=== PATIENT | female | born 1990 | race American Indian/Alaskan Native ===

== ENCOUNTER 2017-10-31 08:18 | Outpatient (CLI) | payer MEDICAID ==
[2017-10-31] MEDS ORDERED: LACTATED RINGERS 500 ML IV ONE (10:10)
[2017-10-31 11:01] VITALS: BP 119/59
== END 2017-10-31 11:25 | disposition home or self-care (01) ==
LOC: TRG 08:18
PROVIDERS: ATTEND Obstetrics & Gynecology
DX: O47.03 False labor before 37 completed weeks of gestation, third trimester (principal); Z3A.28 28 weeks gestation of pregnancy
CPT/HCPCS: 59025

== ENCOUNTER 2017-12-06 02:21 | Emergency (ER) | payer MEDICAID ==
[2017-12-06] MEDS ORDERED: TYLENOL ONE (02:34)
[2017-12-06 02:47] VITALS: BP 117/60
[2017-12-06] MEDS ORDERED: TYLENOL PO ONE (02:47)
== END 2017-12-06 09:40 | disposition left against medical advice (07) ==
LOC: ED 02:21
DX: R51 Headache (principal); Z53.21 Procedure and treatment not carried out due to patient leaving prior to being seen by health care provider

== ENCOUNTER 2017-12-26 22:16 | Outpatient (CLI) | payer MEDICAID ==
[2017-12-26] MEDS ORDERED: LACTATED RINGERS 500 ML IV ONE (22:36)
[2017-12-26 22:49] VITALS: BP 111/56
[2017-12-26 23:29] LABS: Bacteria,Urine 1+ /HPF (Negative); Bilirubin,Urine NEG (Negative); Blood,Urine NEG (Negative); Color,Urine Yellow (Yellow); Mucus,Urine FEW /HPF; Protein,Urine <15 mg/dL mg/dL (Negative); Urobilinogen,Urine < 2.0 mg/dL (<2.0)
== END 2017-12-27 00:55 | disposition home or self-care (01) ==
LOC: TRG 22:16
PROVIDERS: ATTEND Obstetrics & Gynecology
DX: O47.03 False labor before 37 completed weeks of gestation, third trimester (principal); Z3A.36 36 weeks gestation of pregnancy
CPT/HCPCS: 81001

== ENCOUNTER 2017-12-28 05:19 | Inpatient (IN) | payer MEDICAID ==
[2017-12-28] MEDS ORDERED: LACTATED RINGERS 1,000 ML ONE (05:45)
[2017-12-28] MEDS ORDERED: PITOCin/NS 20 UNIT/1000ML DRIP 20,000 MILLIUNITS/1,000 ML BAG IV ONE (05:46)
[2017-12-28] MEDS ORDERED: STADOL ONE (05:59)
[2017-12-28] MEDS ORDERED: POLYCILLIN/NS 2 GM/100 ML 2 GM/100 ML BAG IV SCH (06:00)
[2017-12-28] MEDS ORDERED: LACTATED RINGERS 1,000 ML IV SCH (06:00)
[2017-12-28] MEDS ORDERED: METHERGINE IM ONE ×2 (06:25→06:34)
[2017-12-28 06:31] LABS: Hemoglobin 9.6 gm/dl (10.1-14.3); Mean Corpuscular HGB Conc 33 % (30-34); Mean Corpuscular Hemoglobin 31 pg (28-32); Mean Corpuscular Volume 93 fl (79-97); Platelet Count 338 K/mm3 (140-440); Red Blood Count 3.12 M/mm3 (3.65-5.03); Red Cell Distribution Width 16.2 % (13.2-15.2)
--- NOTE | 2017-12-28 06:32 | Procedure Note ---
OB Delivery Note - Delivery Date of Delivery: 12/28/17 (6-5oz male @ 0619) Surgeon: NAIN CAVAZOS Estimated blood loss: 300cc - Vaginal Delivery presentation: vertex Delivery position: OA Intrapartum events: none Delivery induction: none Delivery monitor: external FHT, external uterine Route of delivery: Delivery placenta: spontaneous Delivery cord: 3 umbilical vessels Episiotomy: none Delivery laceration: none Anesthesia: none - A at 1 minute: 8 at 5 minutes: 9 Gender: Female (SROM clear fluid unpon arrival. viable female. Spont. lusty cry. Patient declined skin to skin. Cord blood collected. Spont. placenta. heavy bleeding. Pitocin infusing. methergine given. No lacerations. Bleeding scant)
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
[2017-12-28] MEDS ORDERED: PITOCin/NS 20 UNIT/1000ML DRIP 20 UNITS/1,000 ML BAG IV SCH (07:00)
[2017-12-28] MEDS ORDERED: POLYCILLIN/NS 2 GM/100 ML 2 GM/100 ML BAG IV ONE (07:00)
[2017-12-28] MEDS ORDERED: BENADRYL PO PRN (08:30)
[2017-12-28] MEDS ORDERED: TYLENOL PO PRN (08:30)
[2017-12-28] MEDS ORDERED: PHENERGAN PR PRN (08:30)
[2017-12-28] MEDS ORDERED: ZOFRAN IV PRN (08:30)
[2017-12-28] MEDS ORDERED: PHENERGAN PO PRN (08:30)
[2017-12-28] MEDS ORDERED: LANSINOH TP PRN (08:30)
[2017-12-28] MEDS ORDERED: SODIUM CHLORIDE FLUSH SYRINGE 10 ML IV PRN (08:30)
[2017-12-28] MEDS ORDERED: TUCKS PAD TP PRN (08:30)
[2017-12-28] MEDS: MOTRIN PO SCH ×2 (09:35→18:37)
[2017-12-28] MEDS: FEOSOL PO SCH ×2 (09:35→21:58)
[2017-12-28] MEDS ORDERED: DULCOLAX PR PRN (10:00)
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
[2017-12-28 20:29] LABS: Hematocrit 27.5 % (30.3-42.9); Hemoglobin 9.1 gm/dl (10.1-14.3)
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
[2017-12-28] MEDS: NORCO 5/325 PO PRN (21:58)
[2017-12-28] MEDS ORDERED: MILK OF MAGNESIA PO PRN (22:00)
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
[2017-12-29] MEDS: MOTRIN PO SCH ×3 (01:24→18:23)
[2017-12-29] MEDS: NORCO 5/325 PO PRN (04:34)
[2017-12-29] MEDS ORDERED: BOOSTRIX IM ONE (06:24)
[2017-12-29 07:01] LABS: Alanine Aminotransferase 9 units/L (7-56); Albumin 2.5 g/dL (3.9-5); BUN/Creatinine Ratio 9; Blood Urea Nitrogen 6 mg/dL (7-17); Calcium 7.9 mg/dL (8.4-10.2); Hemolysis Index 4
[2017-12-29] MEDS: FEOSOL PO SCH (09:37)
--- NOTE | 2017-12-29 09:49 | XRay Report ---
AP AND LATERAL SOFT TISSUES OF THE NECK: History: Neck pain. The contour of the upper airway appears within normal limits. The epiglottis is not enlarged. No prevertebral soft tissue swelling is apparent. No mass density or foreign body is evident. IMPRESSION: Normal study.
[2017-12-29] MEDS ORDERED: Fluarix Quad 2017-2018(36 MOS+ IM ONE (12:00)
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
[2017-12-29 17:45] VITALS: BP 115/59
== END 2017-12-29 19:20 | disposition home or self-care (01) | DRG 774 ==
LOC: TRG 05:19 → LD 06:02 → OB 09:01
PROVIDERS: ADMIT Obstetrics & Gynecology; ATTEND Obstetrics & Gynecology
PROC: 10E0XZZ Delivery of Products of Conception, External Approach (ICD-10-PCS; principal; 2017-12-28)
PROC: 3E0234Z Introduction of Serum, Toxoid and Vaccine into Muscle, Percutaneous Approach (ICD-10-PCS; 2017-12-29)
DX: O60.14X0 Preterm labor third trimester with preterm delivery third trimester, not applicable or unspecified (principal); O98.32 Other infections with a predominantly sexual mode of transmission complicating childbirth; Z37.0 Single live birth; Z3A.36 36 weeks gestation of pregnancy; O99.334 Smoking (tobacco) complicating childbirth; F17.200 Nicotine dependence, unspecified, uncomplicated; O75.89 Other specified complications of labor and delivery; H53.8 Other visual disturbances; M54.2 Cervicalgia; M79.606 Pain in leg, unspecified; V89.2XXA Person injured in unspecified motor-vehicle accident, traffic, initial encounter; Y93.89 Activity, other specified; Y92.89 Other specified places as the place of occurrence of the external cause; Y99.8 Other external cause status; Z23 Encounter for immunization; A60.00 Herpesviral infection of urogenital system, unspecified
CPT/HCPCS: 36415; 70360; 70480; 80053; 85014; 85018; 85027; 86592; 86850; 86900; 86901; 88307; 90471; 90686; 90715; 99211; G0463; J0290; J0595; J2210; J2590; J7120

== ENCOUNTER 2018-11-01 03:13 | Outpatient (CLI) | payer MEDICAID ==
[2018-11-01] MEDS ORDERED: LACTATED RINGERS 1,000 ML IV ONE (03:52)
[2018-11-01 04:28] VITALS: BP 110/59
[2018-11-01 04:28] LABS: Bilirubin,Urine NEG (Negative); Blood,Urine NEG (Negative); Color,Urine Straw (Yellow); Mucus,Urine FEW /HPF; Protein,Urine <15 mg/dL mg/dL (Negative); Urobilinogen,Urine < 2.0 mg/dL (<2.0)
[2018-11-01 04:29] LABS: WBC,Urine < 1.0 /HPF (0.0-6.0)
[2018-11-01 04:32] LABS: Hematocrit 29.6 % (30.3-42.9); Hemoglobin 9.5 gm/dl (10.1-14.3); Mean Corpuscular HGB Conc 32 % (30-34); Mean Corpuscular Volume 94 fl (79-97); Platelet Count 313 K/mm3 (140-440); Red Blood Count 3.14 M/mm3 (3.65-5.03); Red Cell Distribution Width 16.8 % (13.2-15.2)
[2018-11-01 05:28] LABS: Alanine Aminotransferase 9 units/L (7-56)
[2018-11-01 06:00] LABS: Uric Acid 3.4 mg/dL (3.5-7.6)
== END 2018-11-01 05:57 | disposition home or self-care (01) ==
LOC: TRG 03:13
PROVIDERS: ATTEND Obstetrics & Gynecology
DX: O47.1 False labor at or after 37 completed weeks of gestation (principal); O99.333 Smoking (tobacco) complicating pregnancy, third trimester; F17.210 Nicotine dependence, cigarettes, uncomplicated; Z3A.39 39 weeks gestation of pregnancy
CPT/HCPCS: 36415; 59025; 81001; 82565; 83615; 84450; 84460; 84550; 85027; 96360; J7120

== ENCOUNTER 2018-11-08 15:07 | Inpatient (IN) | payer MEDICAID ==
[2018-11-08] MEDS ORDERED: BRETHINE SUB-Q PRN (20:50)
[2018-11-08] MEDS ORDERED: ZOFRAN IV PRN (20:50)
[2018-11-08] MEDS ORDERED: SUBLIMAZE IV PRN (20:50)
[2018-11-08] MEDS ORDERED: MINERAL OIL PO PRN (20:50)
[2018-11-08] MEDS ORDERED: BRETHINE IVP PRN (20:50)
[2018-11-08] MEDS ORDERED: PITOCin/NS 20 UNIT/1000ML DRIP 20 UNITS/1,000 ML BAG IV SCH (21:00)
[2018-11-08] MEDS ORDERED: LACTATED RINGERS 1,000 ML IV SCH (21:00)
[2018-11-09] MEDS ORDERED: XYLOCAINE 2% INFILTRATI ONE (00:01)
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
--- NOTE | 2018-11-09 00:37 | Procedure Note ---
OB Delivery Note - Delivery Date of Delivery: 11/08/18 Surgeon: ARACELI POLANCO Estimated blood loss: 200cc - Vaginal Delivery presentation: vertex Delivery position: OA Intrapartum events: none Delivery induction: none Delivery monitor: external FHT, external uterine Route of delivery: Delivery placenta: spontaneous Delivery cord: 3 umbilical vessels Episiotomy: none Delivery laceration: none Anesthesia: none Delivery comments: viable male delivered over intact perineum. Infant placed on maternal abdomen with spontaneous cry. Weight 7 pounds 8 ounces. apgars 8,9. Placenta delivered spontaneously and intact with 3vc. No lacerations. Patient tolerated procedure well. Excellent hemostasis. - Infant A at 1 minute: 8 at 5 minutes: 9 Gender: Male (weight 7 pounds 8 ounces)
[2018-11-09] MEDS ORDERED: TYLENOL PO PRN (00:38)
[2018-11-09] MEDS ORDERED: PHENERGAN PO PRN (00:38)
[2018-11-09] MEDS ORDERED: BENADRYL PO PRN (00:38)
[2018-11-09] MEDS ORDERED: MILK OF MAGNESIA PO PRN (00:38)
[2018-11-09] MEDS ORDERED: PHENERGAN PR PRN (00:38)
[2018-11-09] MEDS ORDERED: ZOFRAN IV PRN (00:38)
[2018-11-09] MEDS ORDERED: TUCKS PAD TP PRN (00:38)
[2018-11-09] MEDS ORDERED: LANSINOH TP PRN (00:38)
[2018-11-09] MEDS ORDERED: SODIUM CHLORIDE FLUSH SYRINGE 10 ML IV NR (01:00)
[2018-11-09] MEDS: IBUPROFEN PO SCH ×4 (02:23→20:00)
[2018-11-09 04:42] LABS: Hematocrit 27.9 % (30.3-42.9); Hemoglobin 9.1 gm/dl (10.1-14.3); Mean Corpuscular HGB Conc 33 % (30-34); Mean Corpuscular Volume 91 fl (79-97); Platelet Count 313 K/mm3 (140-440); Red Blood Count 3.06 M/mm3 (3.65-5.03); Red Cell Distribution Width 16.6 % (13.2-15.2)
[2018-11-09] MEDS ORDERED: DULCOLAX PR PRN (10:00)
[2018-11-09] MEDS: COLACE PO SCH ×2 (11:23→22:14)
[2018-11-09] MEDS: PRENATAL VITAMIN PO SCH (11:23)
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
--- NOTE | 2018-11-09 11:56 | Discharge Summary ---
Providers - Providers Date of Admission: 11/08/18 21:25 Date of discharge: 11/10/18 Attending physician: MARIO RAMOS Primary care physician: MARIO RAMOS Hospitalization Reason for admission: active labor Delivery: Episiotomy: none complications: none Discharge diagnosis: IUP at term delivered [place] baby: male Condition at discharge: Good Disposition: DC-01 TO HOME OR SELFCARE Plan - Discharge Medications Prescriptions: HYDROcodone/ACETAMINOPHEN [[place] 5-325 Tablet] 1 each PO Q6H #20 tablet Ibuprofen [Motrin] 800 mg PO Q8HR PRN #40 tablet PRN Reason: Pain, Mild (1-3) - Provider Discharge Summary Activity: routine, no sex for 6 weeks, no heavy lifting 4 weeks, no strenuous exercise Diet: routine Instructions: routine Additional instructions: [] Smoking cessation referral if applicable(refer to patient education folder for contact #) [] Refer to [facility]'s [facility] Booklet Call your doctor immediately for: * Fever > 100.5 * Heavy vaginal bleeding ( >1 pad per hour) * Severe persistent headache * Shortness of breath * Reddened, hot, painful area to leg or breast * Drainage or odor from incision. * Keep incision clean and dry at all times and follow doctor's instructions regarding bathing/showering - Follow up plan Follow up: MARIO RAMOS MD [Primary Care Provider] - 6 Weeks
[2018-11-09 13:16] LABS: Hematocrit 27.6 % (30.3-42.9); Hemoglobin 9.3 gm/dl (10.1-14.3)
[2018-11-09] MEDS: NORCO 5/325 PO PRN (13:34)
[2018-11-10] MEDS: NORCO 5/325 PO PRN ×2 (06:46→11:37)
[2018-11-10] MEDS: COLACE PO SCH (10:25)
[2018-11-10] MEDS: PRENATAL VITAMIN PO SCH (10:25)
[2018-11-10 13:54] VITALS: BP 118/74
--- NOTE | 2018-11-11 14:16 | Ultrasound Report ---
FINAL REPORT EXAM: US OB BPP WO NON-STRESS HISTORY: BPP, JUSTINA TECHNIQUE: Biophysical profile obstetrical ultrasound PRIORS: Ultrasound OB 09/23/2018. FINDINGS: LMP 02/02/2018 clinical Age: 39 w 6 d LMP EDC 11/09/2018 Biophysical profile scoring 2 movement 2 tone 2 breathing 2 fluid 8/8 overall score Presentation: Cephalic Activity: Monitored Cardiac motion: 152 BPM using M-mode doppler Amniotic Fluid Volume: Adequate JUSTINA : 14.6 cm (normal) IMPRESSION: Single intrauterine viable with an approximate age of 39 weeks 6 days. Biophy sical profile score is 8/8. JUSTINA 14.6 cm
--- NOTE | 2018-11-11 14:20 | Ultrasound Report ---
FINAL REPORT EXAM: US OB LIMITED HISTORY: BPP, JUSTINA TECHNIQUE: Biophysical profile obstetrical ultrasound PRIORS: Ultrasound OB 09/23/2018. FINDINGS: LMP 02/02/2018 clinical Age: 39 w 6 d LMP EDC 11/09/2018 Biophysical profile scoring 2 movement 2 tone 2 breathing 2 fluid 8/8 overall score Presentation: Cephalic Activity: Monitored Cardiac motion: 152 BPM using M-mode doppler Amniotic Fluid Volume: Adequate JUSTINA : 14.6 cm (normal) IMPRESSION: Single intrauterine viable with an approximate age of 39 weeks 6 days. Biophysical profile score is 8/8. JUSTINA 14.6 cm
== END 2018-11-10 13:00 | disposition home or self-care (01) | DRG 775 ==
LOC: TRG 15:07 → LD 21:25 → OB 11-09 01:39
PROVIDERS: ADMIT Obstetrics & Gynecology; ATTEND Obstetrics & Gynecology
PROC: 10E0XZZ Delivery of Products of Conception, External Approach (ICD-10-PCS; principal; 2018-11-08)
DX: O80 Encounter for full-term uncomplicated delivery (principal); Z3A.40 40 weeks gestation of pregnancy; Z37.0 Single live birth
CPT/HCPCS: 36415; 59025; 76815; 76819; 85014; 85018; 85027; 86592; 86850; 86900; 86901; G0378; J2590; J3010; J7120